=== PATIENT | male | born 2005 | race Caucasian/White ===

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

== ENCOUNTER 2025-01-29 18:58 | Emergency (ER) | payer BC, SELFPAY ==
--- OUTSIDE RECORDS SUMMARY | 2025-01-29 19:01 | XMS_ITS | Clinical Summary ---
Author Organization [facility] Address [address] [place] [address] Care Team Providers Care Roofing Technician Name Role Phone No Ref-Primary, Physician Primary Care Provider Allergies No known active allergies Medications Multiple Vitamin (MULTIVITAMIN ADULT PO) Take 1 tablet by mouth daily 06/11/2021 Active lithium ER (LITHOBID) 300 MG CR tablet Take 1 tablet (300 mg) by mouth at bedtime for 3 days, THEN 2 tablets (600 mg) at bedtime for 12 days. 27 tablet 05/10/2023 Active OLANZapine (ZYPREXA) 10 MG tablet Take 1 tablet (10 mg) by mouth nightly as needed (insomnia or manic symptoms) 15 tablet 05/10/2023 Active Active Problems Problem Noted Date Diagnosed Date Anxiety 05/09/2023 Karina 05/09/2023 Unspecified mood (affective) disorder 05/09/2023 Social History Tobacco Use Types Packs/Day Years Used Date Smoking Tobacco: Never Assessed Adolescent Education Answer Date Record ed Getting School Help Needed Not on file 05/09 Sex and Gender Information Value Date Recorded Sex Assigned at Not on file Legal Sex Male 4:38 AM PUNCH PRESS FEEDER Gender Identity Not on file Sexual Orientation Not on file Last Filed Vital Signs Vital Sign Reading Time Taken Comments Blood Pressure 115/70 05/10/2023 11:03 AM PUNCH PRESS FEEDER Pulse 62 05/10/2023 11:03 AM PUNCH PRESS FEEDER Temperature 36.8 C (98.3 F) 05/09/2023 1:57 PM PUNCH PRESS FEEDER Respiratory Rate 20 05/10/2023 11:03 AM PUNCH PRESS FEEDER Oxygen Saturation 100% 05/10/2023 11:03 AM PUNCH PRESS FEEDER Inhaled Oxygen Concentration - - Weight 63.6 kg (140 lb 4.8 oz) 05/09/2023 1:57 P M PUNCH PRESS FEEDER Height 185.4 cm (6' 1) 05/09/2023 1:57 PM PUNCH PRESS FEEDER Body Mass Index 18.51 05/09/2023 1:57 PM PUNCH PRESS FEEDER Plan of Treatment Health Maintenance Due Date Last Done Comments ADVANCE CARE PLANNING 2004 ANNUAL REVIEW OF HM ORDERS 2004 YEARLY PREVENTIVE VISIT 11/14/2007 HIV SCREENING 11/14/2019 HEPATITIS C SCREENING 2022 MENINGITIS B VACCINE (2 of 2 - Bexsero SCDM 2-dose series) 01/21/2023 07/21/2022 PHQ-2 (once per calendar year) 2024 COVID-19 VACCINE ( - season) 2025 INFLUENZA VACCINE (#1) 2025 , 03/30/2018, 03/06/2015, Additional history exists DTAP/TDAP/TD VACCINE (8 - Td or Tdap) 03/08/2026 03/08/2016, 03/08/2016, 11/21/2009, Additional history exists ZOSTER VACCINE (1 of 2) 2054 HEPATITIS B VACCINE Completed 12/14/2005, 12/14/2005, 03/29/2005, Additional history exists PNEUMOCOCCAL VACCINE: PEDIATRICS (0 to 5 YEARS) AND AT-RISK PATIENTS (6 to 49 YEARS) Aged Out 02/16/2006, 06/11/2005, 03/29/2005, Additional history exists No longer eligible based on patient's age to complete this topic HPV VACCINE Completed 04/03/2018, 03/10/2017 MENINGITIS VACCINE Completed 07/08/2021, 03/08/2016 Insurance [place] OUT OF STATE [facility] OUT OF STATE Care Teams Roofing Technician Relationship Specialty Start Date End Date No Ref-Primary, Physician PCP - General 05/09/23
--- OUTSIDE RECORDS SUMMARY | 2025-01-29 19:01 | XMS_ITS | Clinical Summary ---
Author Organization [employer] [facility] Address [address] [place] [address] Care Team Providers Care Furniture Sales Associate Name Role Phone Josias Cormier MD Primary Care Provide r Allergies Active Allergy Reactions Criticality Noted Date Comments Lactase Other - Describe In Comment Field 05/11/2018 Gas, abdominal pain Medications famotidine (PEPCID) 40 mg tablet Take 40 mg by mouth. 4 Active lithium carbonate 300 mg Controlled-Releas e tabletIndications :Bipolar 1 disorder (HC) Take 4 Tablets (1,200 mg) by mouth at bedtime. 360 Tablet 1 5 Active atomoxetine (Strattera) 10 mg capsuleIndication s:ADHD (attention deficit hyperactivity disorder), combined type Take 2 Capsules (20 mg) by mouth once daily. 180 Capsule 1 5 01/17/20 25 Discontin ued(*Alvin rgic/Adve rse Rxn/Side Effects) Active Problems Problem Noted Date Diagnosed Date Grief counseling 07/07/2023 Encounters Date Type Department Care Team Description 01/18/2025 4:15 PM CDT Telemedicine [facility] [address] [facility] [place] [address] Lewis Avila MD Telehealth; Medication Management 12/14/2024 2:15 PM CDT Telemedicine [facility] [address] [place] [address] Lewis Avila MD Follow Up; Telehealth; Medication Management 11/21/2024 11:10 AM CDT Orders Only [facility] [address] [place] [id number] Lab, Appv Lab 11/21/2024 Travel 11/16/2024 2:15 PM CDT Telemedicine [facility] [address] [place] [address] Lewis Avila MD Telehealth; Medication Management; Follow Up 11/09/2024 Telephone [facility] [address] [place] [address] Lewis Avila MD LATE CANCELLATION from Last 3 Months Immunizations Immunization Administration Dates Next Due DTP 11/21/2009,05/06/2006,05/26/2005 DTP-HIB 03/29/2005,02/01/2005 DTaP 05/06/2006, 6,03/29/2005,02/01 DTaP-IPV (Kinrix) 11/21/2009 Dtap Unspecified Formulation 03/08/2016 HIB-HepB (Comvax) 12/14/2005,03/29/2005,02/02/20 05 HPV 9 (Gardasil 9) 04/03/2018,03/10/2017 Hepatitis A (Peds) 10/19/2007,01/17/2007 Hepatitis B (Peds) 12/14/2005,03/29/2005, 005 Hib Conjugate, Unspecified 12/14/2005 Inactivated Polio Vaccine 11/21/2009,08/2005,03/29/2005,02/01 Influenza Virus, Unspecified 03/30/2018, 04/03/2014,03/07/2013,03/23,02/26/2010,02/04/2009,03/31/2007 ,05/18/2006,04/12/2006 Influenza, IIV3 (Age 6-35 mos) 03/31/2007 Influenza, IIV4 04/22/2020,03/06/2015 Influenza,LAIV3 Live Intrana anjel (Flumist) 03/23/2011,02/26/2010,02/04/2009 Influenza,LAIV4 Live Intrana anjel (Flumist) 04/03/2014,03/07/2013 MENINGOCOCCAL VACCINE 2 VIAL 2MO-55YO (MENVEO) 07/08/2021,03/08/2016 MMR 11/21/2009,12/14/2005 MMRV 11/21/2009 Meningococcal B 07/21/2022 Pneumococcal conj 7-Valent (Prevnar 7) 0 02/16/2006,06/11/2005,03/29/2005,02/01 Tdap, Unspecified 03/08/2016 Varicella Vaccine 11/21/2009,12/14/2005 Family History Medical History Relation Name Comments Good Health Mother Relation Name Status Comments Mother Social History Tobacco Use Types Packs/Day Years Used Date Smoking Tobacco: Never Smokeless Tobacco: Never Tobacco Cessation:Counseling Given: Yes Alcohol Use Standard Drinks/Week Comments Yes 6 (1 standard drink = 0.6 oz pur e alcohol) PHQ-2 Answer Date Recorded PHQ-2 TOTAL SCORE 0 11/16/2024 Social Connections Answer Date Recorded Do you often feel lonely or isolated from those around you? 0 01/01/2024 Financial Resource Strain Answer Date R ecorded Difficulty of Paying Living Expenses 3 01/01/2024 Difficulty of Paying Living Expenses Not on file 01/01/2024 Food Insecurity Answer Date Recorded Do you worry your food will run out before you are able to buy more? 1 01/01/2024 Transportation Needs Answer Date Record ed Does lack of transportation keep you from medica l appointments? 1 01/01/2024 Does lack of transportation keep you from work, meetings or getting things that you need? 1 01/01/2024 Housing Stability Answer Date Recorded What is your housing situation today? 1 01/01/2024 Utilities Answer Date Recorded Do you have trouble paying f or utilities (for example, heat, electricity, water, phone)? 1 01/01/2024 Sex and Gender Information Value Date Recorded Sex Assigned at Not on file Legal Sex Male 7:28 AM PERSONAL CONSULTANT Gender Identity Not on file Sexual Orientation Not on file Obstetrics History Last Filed Vital Signs Vital Sign Reading Time Taken Comments Blood Pressure 104/69 02/05/2024 2:09 PM CDT Pulse 78 02/05/2024 2:09 PM CDT Temperature 36.6 C (97.9 F) 02/05/2024 2:09 PM CDT Respiratory Rate 20 02/05/2024 2:09 PM CDT Oxygen Saturation 99% 02/05/2024 2:09 PM CDT Inhaled Oxygen Concentration - - Weight 70.3 kg (155 lb) 02/05/2024 2:09 PM CDT Height 182.9 cm (6') 02/05/2024 2:09 PM CDT Body Mass Index 21.02 02/05/2024 2:09 PM CDT Plan of Treatment Upcoming Encounters Date Type Department Care Team (Late st Contact Info) Description 03/01/2025 3:45 PM CDT Telemedicine [facility] [address] [facility] [place] [address] Lewis Avila MD [address] [place] [address] Health Maintenance Due Date Last Done Comments Well Child Check for age 3-20 10/14/2007 HIV for age 15-65 11/14/2019 Hepatitis C screening for age 18-79 2022 BMI (ht and wt on same day) for age 18+ 05/06/2024 05/06/2023, 03/10/2023, 12/10/2022 COVID-19 vaccine series ( season) 2025 Influenza Vaccine (#1) 2025 , 03/30/2018, 03/06/2015, Additional history exists Depression screening for age 12+ 11/16/2025 11/16/2024 Tetanus booster 03/08/2026 03/08/2016 RSV vaccine for adults or (1 - 1-dose 75+ series) 11/14/2079 Hepatitis B series for 19+ Completed 12/14, 12/14/2005, 03/29/2005, Additional history exists Pneumococcal series for age 6-49 Aged Out 02/16/2006, 06/11/2005, 03/29/2005, Additional history exists No longer eligible based on patient's age to complete this topic HPV series for age 9-45 Completed 04/03/2018, 03/10 Meningococcal series for age 11-21 Completed 07/08/2021, 03/08/2016 Procedures Procedure Name Priority Date/Time Associated Diagnosis Comments BASIC METABOLIC PANEL Routine 11/21/2024 9:55 AM CDT High risk medication use TSH WITH REFLEX Routine 11/21/2024 9:55 AM CDT High risk medication use LITHIUM Routine 11/21/2024 9:55 AM CDT High risk medication use from Last 3 Months Results * TSH WITH REFLEX (11/21/2024 9:55 AM CDT) TSH W/REFLEX TO FT4 1.85 0.40 - 4.50 mIU/L 11/22/2024 5:59 AM CDT [facility] Blood BLOOD SPECIMEN / Unknown [facility] / Unknown 11/21/2024 9:55 AM CDT 11/21/2024 9:55 AM CDT us Lewis Avila MD CHEMISTRY Final Result Performing Organization Address [facility]/ZIP Co de Phone Number [facility] [address] [address], * LITHIUM (11/21/2024 9:55 AM CDT) LITHIUM 0.8 0.6 - 1.2 mmol/L 11/22/2024 11:51 AM CDT [facility] Blood BLOOD SPECIMEN / Unknown [facility] / Unknown 11/21/2024 9:55 AM CDT 11/21/2024 9:55 AM CDT us Lewis Avila MD CHEMISTRY Final Result Performing Organization Address City/[facility]/ZIP Co de Phone Number [facility] [address] [address], [place] [phone] * (ABNORMAL) BASIC METABOLIC PANEL (11/21/2024 9:55 AM CDT) SODIUM 136 135 - 146 mmol/L 11/22/2024 6:08 AM CDT [facility] POTASSIUM 4.3 3.5 - 5.3 mmol/L 11/22/2024 6:08 AM CDT [facility] CARBON DIOXIDE 27 20 - 32 mmol/L 11/22/2024 6:08 AM CDT [facility] GLUCOSE 91 65 - 99 mg/dL 11/22/2024 6:08 AM CDT [facility] Comment: Fasting reference interval CALCIUM 10.4(H) 8.6 - 10.3 mg/dL 11/22/2024 6:08 AM CDT [facility] CREATININE 1.06 0.60 - 1.24 mg/dL 11/22/2024 6:08 AM CDT [facility] BUN/CREATININE RATIO SEE NOTE: 6 - 22 (calc) 11/22/2024 6:08 AM CDT [facility] Comment: Not Reported: BUN and Creatinine are within reference range. EGFR 103 > OR = 60 mL/min/1. 73m2 11/22/2024 6:08 AM CDT [facility] UREA NITROGEN (BUN) 16 7 - 25 mg/dL 11/22/2024 6:08 AM CDT [facility] ELECTROLYTE BALANCE 7 7 - 17 mmol/L (calc) 11/22/2024 6:08 AM CDT [facility] CHLORIDE 102 98 - 110 mmol/L 11/22/2024 6:08 AM CDT [facility] Blood BLOOD SPECIMEN / Unknown [facility] / Unknown 11/21/2024 9:55 AM CDT 11/21/2024 9:55 AM CDT Lewis Avila MD CHEMISTRY Final Result [facility] [address] [place] [address], from Last 3 Months Insurance [facility] [place] Care Teams Furniture Sales Associate Relationship Specialty Start Date End Date Josias Cormier MD [address] [facility] [facility] [address] [place], [place] [phone] PCP - General Pediatric 05/11/18
--- OUTSIDE RECORDS SUMMARY | 2025-01-29 19:01 | XMS_ITS | Patient Health Record ---
Author Organization [facility] Address [address] [place] [address] Care Team Providers Care Customer Orders Clerk Name Role Phone Paul Peña Primary Care Provider KATHARINE Izaguirre Unavailable [phone] Allergies No Known Allergies Reason For Referral No Information Social History Social History Tobacco Use: Social Info Question Answer Notes Parental tobacco use Is there tobacco use around child trino? Ans: No Additional Details Category Social Info Options Details Tobacco Use: Is the child in daycare? No Problems Problem Type SNOMED Code ICD Code Onset Dates Problem Status W/U Status Risk Notes Problem Information temporarily unavailable Impacted cerumen, bilateral (H61.23) Active confirmed Problem Information temporarily unavailable Chronic rhinitis (J31.0) Active confirmed Problem Information temporarily unavailable Chronic sinusitis, unspecified (J32.9) Active confirmed Problem Information temporarily unavailable Nasal congestion (R09.81) Active confirmed Problem Information temporarily unavailable Nasal septal deviation (J34.2) Active confirmed Problem Information temporarily unavailable Tympanic membrane retraction, right (H73.891) Active confirmed Problem Information temporarily unavailable Chronic rhinitis (J31.0) Active confirmed Plan Of Treatment No Information Insurance Providers Payer Name Payer Address Payer Phone Subscriber Number Group Number Insured Name Patient Relationship to Insured Coverage Start Date Coverage End Date BLUE CROSS OUT OF STATE [address] [address] [place], [place] [id number] Homer Heard Child - Insured has Financial Responsibility Medical (General) History Medical History History ICD Code lactose intolerant Surgical History Surgery Date(Month/Year) Broken nose
--- OUTSIDE RECORDS SUMMARY | 2025-01-29 19:01 | XMS_ITS | Patient Health Record ---
Author Organization [facility] Address [address] [facility] [address] [place] [address] Care Team Providers Care Asw/Asuw Tactical Air Controller Name Role Phone PAULIE SPANN, MAKSIM Unavailable [phone] Genia SPANN, Josias Unavailable [phone] Reason For Referral No Information Plan Of Treatment No Information Insurance Providers Payer Name Payer Address Payer Phone Subscriber Number Group Number Insured Name Patient Relationship to Insured Coverage Start Date Coverage End Date PREFERRED ONE [address] [place] [id number] Homer Heard Child - Insured has Financial Responsibility 5
--- NOTE | 2025-01-29 19:07 | CRLHL7_ITS ---
For Patients: As a result of the Century Cures Act, medical imaging exams and procedure reports are released immediately into your electronic medical record. You may view this report before your referring provider. If you have questions, please contact your health care provider. INDICATION: Head trauma. TECHNIQUE: CT head without contrast. COMPARISON: None. FINDINGS: Brain: No intra or extra-axial fluid collection, mass or edema. Solomon-white differentiation is normal. No hydrocephalus. Other: No displaced calvarial fracture. Visualized portions of the orbits, mastoids and paranasal sinuses are unremarkable. IMPRESSION: No gross acute intracranial abnormality. Please note that all CT scans at this facility use dose modulation, iterative reconstruction, and/or weight-based dosing when appropriate to reduce radiation dose to as low as reasonably achievable. Dictated by Alistair Licona MD @ 01/29/2025 7:32:03 PM (Electronically Signed)
[2025-01-29 19:10] VITALS: BP 134/76; PULSE 74; RESP 18; TEMP 36.8; O2SAT 99; BMI 22.6
[2025-01-29] MEDS: ACETAMINOPHEN 500 MG TABLET 1000 MG PO (20:02)
--- NOTE | 2025-01-29 22:34 | ED_ITS ---
HPI - General Adult General Date Seen: 01/29/25 Chief complaint: Head Injury/Pain Stated complaint: hit head sent from urgent care Time Seen by Provider: 01/29/25 20:00 History of Present Illness HPI narrative: Very pleasant 19-year-old gentleman presenting to the ER today for headache and head injury. He fell off the tailgate of his pickup truck 3 days ago on Tuesday. He normally is able to step easily up and down out of his pickup truck but he got the heel of his boot stuck on the tailgate and then fell forward. He struck his head against the ground and suffered a small laceration to his forehead just above his right eyebrow. He was not knocked out. He felt pretty good the following day on Tuesday but yesterday, on Tuesday when he went to work he noticed a dramatic worsening of symptoms. 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 He notes that physical exertion at work as well as the loud noises from the machinery causes significant worsening of headache. He also was nauseous but not vomiting. Headache is right frontal and in the occipital region. This morning his headache was even worse. He was nauseous but did not vomit. He managed to take some Excedrin and it got a little bit better by around noon but then dramatically worsen in the afternoon. He had to leave work early. He is not anticoagulated. No other injuries from the fall. No neck pain. No focal numbness or weakness. Vision is normal. Related Data Home Medications ?Medication ?Instructions ?Recorded ?Confirmed acetaminophen [Tylenol] PO 03/09/23 06/27/24 bupropion HCl 150 mg tablet,12 hr 150 mg PO DAILY 10/1406/27/24 sustained-release lithium carbonate 300 mg 1,200 mg PO QPM 06/27/2410/14 tablet,extended release Previous Rx's ?Medication ?Instructions ?Recorded ondansetron 4 mg disintegrating 4 mg PO Q8H PRN nausea and 01/29/25 tablet vomiting #10 tabs Allergies Allergy/AdvReac Type Severity Reaction Status Date / Time lactose Allergy Verified 06/27/24 11:58 [facility] Medical History Aphthous ulcer ?K12.0 - Recurrent oral aphthae (ICD-10) Sore throat ?J02.9 - Acute pharyngitis, unspecified (ICD-10) Social History Smoking Status: Never smoker Exam Narrative: Exam Narrative: Constitutional: Appears well-developed and well-nourished. Alert. Conversant. Non toxic. HENT: Head: Small superficial laceration just superior to right eyebrow. No depressed skull fracture, Raccoon Eyes, Esparza's sign, or hemotympanum. Face normal. TMs normal Nose: Nose normal. Mouth/Throat: Oral mucosa is clear and moist. no trismus. Eyes: Conjunctivae normal. EOM normal. Pupils equal, round, and reactive to light. No scleral icterus. Neck: Normal range of motion. Neck supple. No tracheal deviation present. Cardiovascular: Normal rate, regular rhythm. Pulmonary/Chest: Effort normal. No stridor. No respiratory distress. Musculoskeletal: RUE: Normal range of motion. No tenderness. No deformity LUE: Normal range of motion. No tenderness. No deformity RLE: Normal range of motion. No edema. No tenderness. No deformity LLE: Normal range of motion. No edema. No tenderness. No deformity Lymph: No cervical adenopathy. Neurological: Alert and oriented to person, place, and time. Normal strength. CN II-VII intact. No sensory deficit. GCS eye subscore is 4. GCS verbal subscore is 5. GCS motor subscore is 6. Normal coordination Mental status normal. Attention normal. Alert and oriented x3. GCS 15. Memory normal. Speech fluent. Cognition normal. Cranial Nerves intact II-XII except I did not formally test gag or visual acuity. EOMI. Palate elevates symmetrically and tongue protrudes in the midline. Strength: 5/5 trapezius on the right and left 5/5 deltoid on the right and left 5/5 biceps on the right and left 5/5 triceps on the right and left 5/5 [employer] consultant on the right and left 5/5 thumb opposition on the right and le ft 5/5 finger abduction on the right and le ft 5/5 hip flexors (L3) on the right and le ft 5/5 quadriceps (L4) on the right and lef t 5/5 tibialis anterior on the right and l eft 5/5 EHL (L5) on the right and left 5/5 gastrocnemius (S1) on the right and left 5/5 hamstring on the right and left coordination normal. Gait normal. Skin: Skin is warm and dry. No rash noted. No pallor. Normal capillary refill. Psychiatric: Normal mood. Normal affect. Polite. Const: Vital Signs, click to edit/add: Vital Signs - 24 hr 01/29/25 19:10 Temperature 98.2 F Pulse Rate [Pulse Oximeter] 74 Respiratory Rate 18 [facility] 134/76 Pulse Oximetry 99 Oxygen Delivery Me thod Room Air Course Vital Signs Vital signs: Initial Vital Signs Temperature 98.2 F 01/29/25 19:10 Temperature Source Temporal Artery Scan 01/29/25 19:10 Pulse Rate 74 01/29/25 19:10 Respiratory Rate 18 01/29/25 19:10 Blood Pressure 134/76 01/29/25 19:10 Blood Pressure Mean 95 01/29/25 19:10 Blood Pressure Position Sitting 01/29/25 19:10 Pulse Oximetry 99 01/29/25 19:10 Oxygen Delivery Method Room Air 01/29/25 19:10 Vital Signs Temperature 98.2 F 01/29/25 19:10 Pulse Rate 74 01/29/25 19:10 Respiratory Rate 18 01/29/25 19:10 Blood Pressure 134/76 01/29/25 19:10 Pulse Oximetry 99 01/29/25 19:10 Oxygen Delivery Method Room Air 01/29/25 19:10 Temperature 98.2 F 01/29/25 19:10 Pulse Rate 74 01/29/25 19:10 Respiratory Rate 18 01/29/25 19:10 Blood Pressure 134/76 01/29/25 19:10 Pulse Oximetry 99 01/29/25 19:10 Oxygen Delivery Method Room Air 01/29/25 19:10 Medications Administered Medications: Discontinued Medications Generic Name Dose Route Start Last Admin Trade Name Freq PRN Reason Stop Dose Admin Acetaminophen 1,000 mg 01/29/25 19:49 01/29/25 20:02 Acetaminophen 500 Mg Tablet PO 01/29/25 19:50 1,000 mg ONCE ONE Administration Acetaminophen 1,000 mg 01/29/25 19:59 01/29/25 20:03 Acetaminophen 500 Mg Tablet PO 01/29/25 20:00 Not Given ONCE ONE Medical Decision Making MDM Narrative Medical decision making narrative: This patient presents with blunt head trauma. Differential includes intracranial injuries (e.g. skull fracture, epidural hematoma, subdural hematoma, intracerebral hemorrhage, and traumatic subarachnoid hemorrhage), verses concussion or other traumatic brain injury. CT imaging was obtained and fortunately was normal. At this time it appears that the patient's symptoms are due to a concussion. The patient/family understand that they must return if any red flags appear/develop in the coming hours/days, as this may represent an indication to perform a repeat CT scan or further evaluation. I have noted that red flags include: headaches that get worse, increased drowsiness, strange behavior, repetitive speech, seizures, repeated vomiting, growing confusion, increased irritability, slurred speech, weakness or numbness, and loss of responsiveness. This information will also be provided in writing at discharge. I have discussed the second impact syndrome, and the importance of not sustaining repeated concussion in the next 1-2 weeks. Post concussive syndrome is also discussed. The patient's questions have been answered. They have a responsible adult to accompany them home. Note for work provided. Prescriptions of for Zofran to use as needed for nausea Discharge Plan Discharge Clinical Impression: Concussion Patient Disposition: Home, Self-Care Condition: Stable Instructions: Concussion (ED) Additional Instructions: As we discussed, return to the ER right away if you have worsening symptoms especially severe headache, uncontrolled vomiting, confusion, seizures, or any other concerns. We suspect your symptoms are related to a concussion. Fortunately her CT scan looks good. We do not see any signs of skull fracture, internal bleeding, swelling, or bruising on your brain. Symptoms of a concussion can last anywhere from days to weeks. It is important to avoid activities that trigger the symptoms such as strenuous activity, loud noises, or bright lights. Also avoid dangerous activities that could lead to another head injury before your concussion is healed. To treat the symptoms rest and avoid activities that trigger them. If you are having headache it is okay to treat with Tylenol or ibuprofen as needed. Use Zofran (prescription nausea medication) if needed for nausea. If you are not completely healed, please follow-up with your regular doctor for recheck within 7 days. Prescriptions: New ondansetron 4 mg tablet,disintegrating 4 mg PO Q8H PRN (Reason: nausea and vomiting) Qty: 10 0RF No Action acetaminophen [Tylenol] PO bupropion HCl 150 mg tablet sustained-release 12 hr 150 mg PO DAILY lithium carbonate 300 mg tablet extended release 1,200 mg PO QPM Follow Up/Referrals: Laila Velazco MD [Primary Care Provider, Emergency Medicine] Stand Alone Forms: [facility], [facility] Inst[facility]
== END 2025-01-29 21:17 | disposition home or self-care (01) ==
PROVIDERS: Emergency Provider Emergency Medicine; PCP Family Medicine
DX: S06.0X0A Concussion without loss of consciousness, initial encounter (principal); W17.89XA Other fall from one level to another, initial encounter
CPT/HCPCS: 70450; 99282; 99283; 99284; A9270